=== PATIENT | male | born 1975 | race African-American/Black ===

== ENCOUNTER 2019-02-06 07:17 | Emergency (ER) | payer MEDICAID, OTHER ==
[~2019-02-06] VITALS: Ht 188 cm; Wt 93.0 kg
[~2019-02-06 07:17] MED LIST: AMLO10TA7 PO; ASPI-1152 PO; CARV6.25 PO; LISI40TA4 PO; SIMV20TA2 PO
[2019-02-06] MEDS ORDERED: KETOROLAC TROMETHAMINE INJ 60 MG/2 ML VIAL IM ONE ×2 (07:37→08:00)
[2019-02-06] MEDS ORDERED: SUMATRIPTAN SUCCINATE 6 MG/0.5 ML VIAL SQ ONE ×2 (07:37→08:00)
--- NOTE | 2019-02-06 08:03 | NUR ---
patient BIBGF c/o headache s/p taking sex pills on room air, breathing evenly and unlabored. Connected to the monitor and pulse ox. Kept comfortable, will continue to monitor accordingly.
[2019-02-06 08:04] VITALS: BP 150/99
--- NOTE | 2019-02-06 08:05 | NUR ---
Patient discharged to home in stable condition. Written and verbal after care instructions given. Patient verbalizes understanding of instruction.
== END 2019-02-06 08:04 | disposition home or self-care (01) ==
LOC: ER 07:20
DX: R51 Headache (principal); I10 Essential (primary) hypertension; E11.9 Type 2 diabetes mellitus without complications; Z98.890 Other specified postprocedural states; Z79.82 Long term (current) use of aspirin; Z79.899 Other long term (current) drug therapy
CPT/HCPCS: 96372 ×2; 99283; J1885; J3030

== ENCOUNTER 2019-06-25 14:59 | Emergency (ER) | payer BC, MEDICAID ==
[~2019-06-25] VITALS: Ht 188 cm; Wt 95.3 kg
--- NOTE | 2019-06-25 15:40 | NUR ---
difficulty breathing x 2 days. states stop taking his usual medication. 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
[2019-06-25 16:12] LABS: BASOPHILS # (AUTO) 0.2 /CMM (0.0-0.2); BASOPHILS % (AUTO) 1.8 % (0.0-2.0); HEMATOCRIT 41 % (39-51); HEMOGLOBIN 13.6 g/dL (13.5-17.5); LYMPHOCYTES # (AUTO) 1.2 /CMM (0.8-4.8); LYMPHOCYTES % (AUTO) 12.7 % (20.0-44.0); MEAN CORPUSCULAR HGB CONC 33 g/dl (31.0-36.0); MEAN CORPUSCULAR VOLUME 85 fL (80-96); MONOCYTES # (AUTO) 0.9 /CMM (0.1-1.30); MONOCYTES % (AUTO) 8.9 % (2.0-12.0); NEUTROPHILS # (AUTO) 7.2 /CMM (1.8-8.9); NEUTROPHILS % (AUTO) 74.6 % (43.0-81.0); PLATELET COUNT (AUTO) 248 /CMM (150-450); RED BLOOD CELL COUNT(AUTO) 4.88 MIL/uL (4.5-6.0); WHITE BLOOD COUNT (AUTO) 9.7 K/uL (4.3-11.0)
[2019-06-25 16:18] LABS: CALCIUM, SERUM 9.6 mg/dL (8.5-10.1); CREATININE 1.3 mg/dL (0.6-1.3); POTASSIUM 3.5 mmol/L (3.5-5.1)
--- NOTE | 2019-06-25 16:30 | NUR ---
patient ambulatory with a steady gait, no resp distress noted.
[2019-06-25 16:31] LABS: ALBUMIN 3.6 g/dL (3.4-5.0); BILIRUBIN,DIRECT 0.1 mg/dL (0.0-0.2); BILIRUBIN,TOTAL 0.3 mg/dL (0.2-1.0); TOTAL PROTEIN, SERUM 7.5 g/dL (6.4-8.2)
--- NOTE | 2019-06-25 17:01 | NUR ---
Patient discharged to home in stable condition. Written and verbal after care instructions given. Patient verbalizes understanding of instruction.
[2019-06-25 17:04] VITALS: BP 135/100
== END 2019-06-25 17:04 | disposition home or self-care (01) ==
LOC: ER 15:05
DX: I11.0 Hypertensive heart disease with heart failure (principal); I50.9 Heart failure, unspecified; E11.9 Type 2 diabetes mellitus without complications; I25.10 Atherosclerotic heart disease of native coronary artery without angina pectoris; E78.5 Hyperlipidemia, unspecified; Z98.890 Other specified postprocedural states; Z79.82 Long term (current) use of aspirin; Z79.899 Other long term (current) drug therapy
CPT/HCPCS: 36415; 71045-TC; 80048-TC; 80076-TC; 83880; 84484-TC; 85025-TC

== ENCOUNTER 2020-05-15 12:14 | Emergency (ER) | payer MEDICAID ==
[~2020-05-15] VITALS: Ht 188 cm; Wt 95.3 kg
[~2020-05-15 12:14] MED LIST changes: +AMLO-213 PO; -AMLO10TA7 PO; -ASPI-1152 PO; +ASPI-1420 PO
[2020-05-15 13:20] VITALS: BP 158/98
--- NOTE | 2020-05-15 13:29 | NUR ---
DR CASTRO AT BEDSIDE WALDO ABDUL.
[2020-05-15 14:35] LABS: BASOPHILS % (AUTO) 0.6 % (0.0-2.0); HEMATOCRIT 42 % (39-51); HEMOGLOBIN 13.6 g/dL (13.5-17.5); LYMPHOCYTES # (AUTO) 1.4 /CMM (0.8-4.8); MEAN CORPUSCULAR HGB CONC 32 g/dl (31.0-36.0); MEAN CORPUSCULAR VOLUME 83 fL (80-96); MONOCYTES # (AUTO) 0.6 /CMM (0.1-1.30); MONOCYTES % (AUTO) 7.6 % (2.0-12.0); NEUTROPHILS # (AUTO) 6.1 /CMM (1.8-8.9); NEUTROPHILS % (AUTO) 73.8 % (43.0-81.0); PLATELET COUNT (AUTO) 233 /CMM (150-450); RED BLOOD CELL COUNT(AUTO) 5.08 MIL/uL (4.5-6.0); WHITE BLOOD COUNT (AUTO) 8.3 K/uL (4.3-11.0)
--- NOTE | 2020-05-15 14:55 | NUR ---
dr rider into patient. Patient does not wish to proceed with medical care recommended by Dr. Rider. Patient given information related to possible complications, up to and including , which could occur as a result of leaving the hospital at this time. Patient verbalizes understanding of risks involved due to leaving against medical advice. Patient has signed AMA form.
[2020-05-15 14:57] LABS: CALCIUM, SERUM 9.4 mg/dL (8.5-10.1); CREATININE 1.3 mg/dL (0.6-1.3); POTASSIUM 3.8 mmol/L (3.5-5.1)
== END 2020-05-15 14:57 | disposition left against medical advice (07) ==
LOC: ER 12:21
DX: I11.0 Hypertensive heart disease with heart failure (principal); I50.9 Heart failure, unspecified; R06.02 Shortness of breath; E11.9 Type 2 diabetes mellitus without complications; Z98.890 Other specified postprocedural states; Z79.899 Other long term (current) drug therapy; Z79.82 Long term (current) use of aspirin
CPT/HCPCS: 36415; 80048-TC; 83880; 84484-TC; 85025-TC; 85730-TC

== ENCOUNTER 2021-03-28 01:12 | Emergency (ER) | payer MEDICAID ==
[~2021-03-28] VITALS: Ht 188 cm; Wt 93.0 kg
[~2021-03-28 01:12] MED LIST changes: +LISI40TA13 PO; -LISI40TA4 PO
--- NOTE | 2021-03-28 01:25 | NUR ---
JUAN BIBS C/O "TROUBLE BREATHING, HARD TO INHALE" FOR THE PAST 3 DAYS. PATIENT IS A/O X 4, RR EVEN AND UNLABORED, NO SOB NOTED. PATIENT CONNECTED TO PRACTICE OR STUDENT TEACHER AND POX.
[2021-03-28] MEDS ORDERED: NITROGLYCERIN 0.4 MG/TAB BOTTLE SL ONE (01:30)
[2021-03-28] MEDS ORDERED: NITROGLYCERIN 0.4 MG/TAB BOTTLE ONE (01:42)
[2021-03-28 01:56] LABS: BASOPHILS # (AUTO) 0.1 K/uL (0.0-0.2); BASOPHILS % (AUTO) 0.8 % (0.0-2.0); EOSINOPHILS % (AUTO) 1.3 % (0.0-6.0); HEMATOCRIT 41 % (39-51); HEMOGLOBIN 13.1 g/dL (13.5-17.5); LYMPHOCYTES # (AUTO) 1.2 K/uL (0.8-4.8); MEAN CORPUSCULAR HGB CONC 32 g/dl (31.0-36.0); MEAN CORPUSCULAR VOLUME 85 fL (80-96); MONOCYTES # (AUTO) 0.9 K/uL (0.1-1.30); MONOCYTES % (AUTO) 8.8 % (2.0-12.0); NEUTROPHILS # (AUTO) 7.8 K/uL (1.8-8.9); NEUTROPHILS % (AUTO) 77.1 % (43.0-81.0); PLATELET COUNT (AUTO) 271 K/uL (150-450); RED BLOOD CELL COUNT(AUTO) 4.79 MIL/uL (4.5-6.0); WHITE BLOOD COUNT (AUTO) 10.1 K/uL (4.3-11.0)
[2021-03-28 02:07] LABS: CALCIUM, SERUM 9.1 mg/dL (8.5-10.1); POTASSIUM 3.5 mmol/L (3.5-5.1)
--- NOTE | 2021-03-28 02:15 | NUR ---
RAD AT BEDSIDE
[2021-03-28] MEDS ORDERED: FUROSEMIDE 40 MG/4 ML VIAL ONE (02:40)
[2021-03-28] MEDS ORDERED: FURO-144 PO (02:43)
[2021-03-28 02:55] VITALS: BP 137/79
--- NOTE | 2021-03-28 02:57 | NUR ---
Patient discharged to home in stable condition. Written and verbal after care instructions given. Patient verbalizes understanding of instruction.
[2021-03-28] MEDS ORDERED: FUROSEMIDE 40 MG TABLET PO ONE (03:00)
== END 2021-03-28 02:58 | disposition home or self-care (01) ==
LOC: ER 01:14
DX: I11.0 Hypertensive heart disease with heart failure (principal); I50.9 Heart failure, unspecified; R06.02 Shortness of breath; E11.9 Type 2 diabetes mellitus without complications; Z98.890 Other specified postprocedural states; Z79.899 Other long term (current) drug therapy
CPT/HCPCS: 36415; 71045; 80048; 83880; 84484; 85025; 93005 ×2; 99285; J1940

== ENCOUNTER 2022-02-17 01:08 | Emergency (ER) | payer MEDICAID ==
[~2022-02-17] VITALS: Ht 188 cm; Wt 90.7 kg
[~2022-02-17 01:08] MED LIST changes: +FURO-144 PO
--- NOTE | 2022-02-17 01:38 | NUR ---
BIBS C/O SOB X2 DAYS. HAS A HX OF HF, AND HAS BEEN OFF HIS LASIX X5 DAYS BECAUSE "IT MAKES ME WAKE UP TO PEE TOO MUCH". PT BREATHING UNALBORED AT A NORMAL RATE AND RYTHMN, ORIENTED X4 98% RA. V/S WNL.
[2022-02-17 02:33] LABS: BASOPHILS # (AUTO) 0.1 K/uL (0.0-0.2); BASOPHILS % (AUTO) 0.5 % (0.0-2.0); HEMATOCRIT 40 % (39-51); HEMOGLOBIN 13.2 g/dL (13.5-17.5); LYMPHOCYTES # (AUTO) 1.3 K/uL (0.8-4.8); LYMPHOCYTES % (AUTO) 13.2 % (20.0-44.0); MEAN CORPUSCULAR HGB CONC 33 g/dl (31.0-36.0); MEAN CORPUSCULAR VOLUME 85 fL (80-96); MONOCYTES # (AUTO) 0.9 K/uL (0.1-1.30); MONOCYTES % (AUTO) 9.1 % (2.0-12.0); NEUTROPHILS # (AUTO) 7.6 K/uL (1.8-8.9); NEUTROPHILS % (AUTO) 76.2 % (43.0-81.0); PLATELET COUNT (AUTO) 218 K/uL (150-450); RED BLOOD CELL COUNT(AUTO) 4.75 MIL/uL (4.5-6.0)
[2022-02-17 02:56] LABS: CALCIUM, SERUM 9.8 mg/dL (8.5-10.1); CARBON DIOXIDE 27 mmol/L (21-32); CHLORIDE 105 mmol/L (98-107); CREATININE 1.5 mg/dL (0.6-1.3); GLUCOSE 112 mg/dL (74-106); POTASSIUM 3.3 mmol/L (3.5-5.1); SODIUM SERUM 140 mmol/L (136-145); UREA NITROGEN, BLOOD 25 mg/dL (7-18)
[2022-02-17] MEDS ORDERED: POTASSIUM CHLORIDE 20 MEQ TAB.PRT.SR PO ONE (04:00)
[2022-02-17] MEDS ORDERED: FUROSEMIDE 40 MG/4 ML VIAL IV ONE (04:00)
[2022-02-17] MEDS ORDERED: FUROSEMIDE 40 MG/4 ML VIAL ONE (04:16)
--- NOTE | 2022-02-17 04:53 | NUR ---
Patient discharged to home in stable condition. Written and verbal after care instructions given. Patient verbalizes understanding of instruction.
--- NOTE | 2022-02-17 04:53 | NUR ---
IV removed. Catheter intact and site benign. Pressure and 4x4 applied to site. No bleeding noted.
[2022-02-17 04:54] VITALS: BP 131/98
== END 2022-02-17 04:54 | disposition home or self-care (01) ==
LOC: ER 01:10
DX: R06.02 Shortness of breath (principal); I11.0 Hypertensive heart disease with heart failure; I50.9 Heart failure, unspecified; E11.9 Type 2 diabetes mellitus without complications; Z79.899 Other long term (current) drug therapy
CPT/HCPCS: 99285; 96374; 71045; 93005; 85025; 80048; 36415; 84484 ×2; 83880; J1940

== ENCOUNTER → 2022-03-01 | Emergency (ER) | payer MEDICAID ==
[~2022-03-01] VITALS: Ht 188 cm; Wt 90.7 kg
[~2022-03-01] MED LIST changes: +CEFTRIAXONE 1 G VIAL IM ONE; +CEFTRIAXONE 500 MG VIAL ONE; +DOXY100C2 PO; +IBUP-1955 PO; +LIDOCAINE 1% INJ 50 ML MDV IJ ONE
--- NOTE | 2022-03-01 13:40 | NUR ---
Modesta, C/O LEFT KNEE SWOLLEN INFLAMMED WAS AT AN 8 OUT OF 10 TOOK IBUPROFEN BEFORE ER VISIT IT HAS HELPED PAIN LEVEL NOW AT 3 OUT OF 10. STATED DID NOT FALL NOR HIT AREA
--- NOTE | 2022-03-01 13:50 | NUR ---
REFUSES IF THERE IS AN IV ORDER
--- NOTE | 2022-03-01 13:50 | NUR ---
WISHES TO BE DRAINED AND WRAPPED UP & ON HIS WAY, EDUCATED AND ADVISED TO FOLLOW MDs ORDERS AND DIRECTION HOWEVER WISHES TO BE UNCOOPERATIVE AT THIS TIME.
--- NOTE | 2022-03-01 13:50 | NUR ---
REFUSES X-RAY OF SITE
[2022-03-01 15:50] VITALS: BP 126/84
--- NOTE | 2022-03-02 07:49 | NUR ---
RECIEVED A CALL FROM THE LAB URINE WAS NEVER COLLECTED STI TESTING COULD NOT BE RESULTED
== END | disposition home or self-care (01) ==
LOC: ER 13:00
DX: M25.462 Effusion, left knee (principal); M25.562 Pain in left knee; Z11.3 Encounter for screening for infections with a predominantly sexual mode of transmission; I11.0 Hypertensive heart disease with heart failure; I50.9 Heart failure, unspecified; E11.9 Type 2 diabetes mellitus without complications; Z79.899 Other long term (current) drug therapy
CPT/HCPCS: 20610; 99283; 89060; 87070; 36415; 89051; 96372; J3490; J0696; A6403; A6407; 84155-TC

== ENCOUNTER 2022-04-20 11:30 | Emergency (ER) | payer MEDICAID ==
[~2022-04-20] VITALS: Ht 188 cm; Wt 89.4 kg
[~2022-04-20 11:30] MED LIST changes: -CEFTRIAXONE 1 G VIAL IM ONE; -CEFTRIAXONE 500 MG VIAL ONE; -LIDOCAINE 1% INJ 50 ML MDV IJ ONE
[2022-04-20 12:00] VITALS: BP 138/104
[2022-04-20] MEDS ORDERED: ACYC-108 PO (12:38)
[2022-04-20] MEDS ORDERED: HYDR-3980 PO (12:38)
== END 2022-04-20 12:44 | disposition home or self-care (01) ==
LOC: ER 11:30
DX: B02.9 Zoster without complications (principal); M54.50 Low back pain, unspecified; I11.0 Hypertensive heart disease with heart failure; Z79.82 Long term (current) use of aspirin; Z98.890 Other specified postprocedural states

== ENCOUNTER 2022-05-11 07:29 | Emergency (ER) | payer MEDICAID ==
[~2022-05-11] VITALS: Ht 188 cm; Wt 90.7 kg
[~2022-05-11 07:29] MED LIST changes: +ACYC-108 PO; +HYDR-3980 PO
--- NOTE | 2022-05-11 07:55 | NUR ---
C/O SOB X 3 DAYS. PT STATES "TIGHTNESS WHEN INHALING". HX OF CHF SPO2 AT 92% RA. NOTED CRACKLES ON BILATERAL LUNG BASES. PT AMBULATED TO BED, AA0X4, PLACED ON 2L NC O2, SATURATION IMPROVED TO 98%. AWAITING MD ORDERS.
[2022-05-11] MEDS ORDERED: ENALAPRILAT DIHYD. (2.5MG/2ML) 1.25 MG/ML VIAL IV ONE ×2 (08:00→08:21)
[2022-05-11] MEDS ORDERED: FUROSEMIDE 40 MG/4 ML VIAL IV ONE (08:00)
[2022-05-11] MEDS ORDERED: NITROGLYCERIN 0.4 MG/TAB BOTTLE SL ONE (08:00)
--- NOTE | 2022-05-11 08:00 | NUR ---
INSERTED ANG CATHETER G 18 ON RT AC BLOOD DROW AND SENT TO LAB
[2022-05-11] MEDS ORDERED: FUROSEMIDE 40 MG/4 ML VIAL ONE (08:05)
[2022-05-11] MEDS ORDERED: NITROGLYCERIN 0.4 MG/TAB BOTTLE ONE (08:06)
[2022-05-11] MEDS ORDERED: ALBUTEROL FS 2.5 MG/3 ML VIAL.NEB ONE (08:13)
[2022-05-11] MEDS ORDERED: IPRATROPIUM NEB FS 0.5 MG/2.5 ML AMPUL.NEB ONE (08:13)
[2022-05-11 08:22] LABS: BASOPHILS # (AUTO) 0.2 K/uL (0.0-0.2); BASOPHILS % (AUTO) 2.4 % (0.0-2.0); HEMATOCRIT 41 % (39-51); HEMOGLOBIN 13.2 g/dL (13.5-17.5); LYMPHOCYTES # (AUTO) 1.6 K/uL (0.8-4.8); LYMPHOCYTES % (AUTO) 16.2 % (20.0-44.0); MEAN CORPUSCULAR HGB CONC 32 g/dl (31.0-36.0); MEAN CORPUSCULAR VOLUME 86 fL (80-96); MONOCYTES # (AUTO) 0.8 K/uL (0.1-1.30); MONOCYTES % (AUTO) 8.2 % (2.0-12.0); NEUTROPHILS % (AUTO) 72.2 % (43.0-81.0); PLATELET COUNT (AUTO) 280 K/uL (150-450); RED BLOOD CELL COUNT(AUTO) 4.77 MIL/uL (4.5-6.0); WHITE BLOOD COUNT (AUTO) 9.7 K/uL (4.3-11.0)
[2022-05-11 08:44] LABS: ALANINE AMINOTRANSFERASE 28 U/L (12-78); ALBUMIN 3.4 g/dL (3.4-5.0); ALKALINE PHOSPHATASE 90 U/L (46-116); ASPARTATE AMINOTRANSFERASE 20 U/L (15-37); BILIRUBIN,DIRECT 0.3 mg/dL (0.0-0.2); CALCIUM, SERUM 9.3 mg/dL (8.5-10.1); CARBON DIOXIDE 26 mmol/L (21-32); CHLORIDE 101 mmol/L (98-107); CREATININE 1.6 mg/dL (0.6-1.3); GLUCOSE 124 mg/dL (74-106); POTASSIUM 3.2 mmol/L (3.5-5.1); SODIUM SERUM 138 mmol/L (136-145); TOTAL PROTEIN, SERUM 7.8 g/dL (6.4-8.2); UREA NITROGEN, BLOOD 26 mg/dL (7-18)
[2022-05-11] MEDS ORDERED: FURO-144 PO (09:20)
[2022-05-11 09:30] VITALS: BP 150/101
--- NOTE | 2022-05-11 09:30 | NUR ---
Patient does not wish to proceed with medical care recommended by Dr. Shelton. Patient given information related to possible complications, up to and including , which could occur as a result of leaving the hospital at this time. Patient verbalizes understanding of risks involved due to leaving against medical advice. Patient has signed AMA form.
== END 2022-05-11 09:31 | disposition left against medical advice (07) ==
LOC: ER 07:30
DX: I11.0 Hypertensive heart disease with heart failure (principal); I50.9 Heart failure, unspecified; E11.9 Type 2 diabetes mellitus without complications; Z79.899 Other long term (current) drug therapy
CPT/HCPCS: 99291; 96374; 96375; 93005; 71045; 85025; 80048; 80076; 83735; 36415; 84484; 83880; J1940; J3490

== ENCOUNTER 2022-05-12 19:17 | Emergency (ER) | payer MEDICAID ==
[~2022-05-12] VITALS: Ht 188 cm; Wt 90.7 kg
--- NOTE | 2022-05-12 20:15 | NUR ---
PT CAME IN FOR SOB. AOX4, O2 SAT AT 98% ON ROOM AIR, NO DISTRESS MOTED. AMBULATORY.
--- NOTE | 2022-05-12 21:02 | NUR ---
IV LINE INSERTED ON LAC 20G GOOD BLOOD RETURN, BLOOD DRAWN DONE SENT TO LAB.
--- NOTE | 2022-05-12 21:03 | NUR ---
INFORMATION TECHNOLOGY AUDITOR AT BEDSIDE
[2022-05-12 21:19] LABS: BASOPHILS # (AUTO) 0.1 K/uL (0.0-0.2); BASOPHILS % (AUTO) 1.1 % (0.0-2.0); EOSINOPHILS % (AUTO) 1.9 % (0.0-6.0); HEMATOCRIT 43 % (39-51); HEMOGLOBIN 13.9 g/dL (13.5-17.5); LYMPHOCYTES # (AUTO) 1.2 K/uL (0.8-4.8); MEAN CORPUSCULAR HGB CONC 33 g/dl (31.0-36.0); MEAN CORPUSCULAR VOLUME 85 fL (80-96); MONOCYTES # (AUTO) 0.8 K/uL (0.1-1.30); MONOCYTES % (AUTO) 10.5 % (2.0-12.0); NEUTROPHILS # (AUTO) 5.6 K/uL (1.8-8.9); NEUTROPHILS % (AUTO) 71.5 % (43.0-81.0); PLATELET COUNT (AUTO) 255 K/uL (150-450); RED BLOOD CELL COUNT(AUTO) 5.01 MIL/uL (4.5-6.0); WHITE BLOOD COUNT (AUTO) 7.8 K/uL (4.3-11.0)
[2022-05-12 21:33] LABS: CALCIUM, SERUM 9.4 mg/dL (8.5-10.1); CREATININE 1.9 mg/dL (0.6-1.3); POTASSIUM 3.4 mmol/L (3.5-5.1)
[2022-05-12] MEDS ORDERED: POTASSIUM CHLORIDE 20 MEQ TAB.PRT.SR PO ONE ×2 (22:23→22:30)
[2022-05-12] MEDS ORDERED: FUROSEMIDE 40 MG/4 ML VIAL IV ONE (22:30)
--- NOTE | 2022-05-12 22:52 | NUR ---
PT DC TO HOME. DISCHARGE INSTRUCTIONS GIVEN, VERBALIZES UNDERSTANDING. IV LINE REMOVED. CATHETER INTACT.
[2022-05-12 22:55] VITALS: BP 125/52
== END 2022-05-12 22:57 | disposition home or self-care (01) ==
LOC: ER 19:26
DX: I11.0 Hypertensive heart disease with heart failure (principal); I50.9 Heart failure, unspecified; R06.02 Shortness of breath; R79.89 Other specified abnormal findings of blood chemistry; E11.9 Type 2 diabetes mellitus without complications; Z79.899 Other long term (current) drug therapy
CPT/HCPCS: 99291; 96374; 93005; 71045; 85025; 80048; 36415; 84484; 83880; J1940

== ENCOUNTER 2022-08-02 17:31 | Emergency (ER) | payer MEDICAID ==
[~2022-08-02] VITALS: Ht 182.9 cm; Wt 91.2 kg
[2022-08-02 18:27] VITALS: BP 129/85
[2022-08-02] MEDS ORDERED: IBUPROFEN 600 MG TABLET PO ONE (20:00)
[2022-08-02] MEDS ORDERED: IBUPROFEN 600 MG TABLET ONE (20:04)
[2022-08-02] MEDS ORDERED: IBUP-1953 PO (21:56)
== END 2022-08-02 22:17 | disposition home or self-care (01) ==
LOC: ER 17:50
DX: M25.561 Pain in right knee (principal); I10 Essential (primary) hypertension; E11.9 Type 2 diabetes mellitus without complications; Z98.890 Other specified postprocedural states; Z79.899 Other long term (current) drug therapy; Z79.82 Long term (current) use of aspirin
CPT/HCPCS: 73564-TC

== ENCOUNTER 2023-03-29 13:00 | Emergency (ER) | payer MEDICAID ==
[~2023-03-29] VITALS: Ht 188 cm; Wt 94.3 kg
[~2023-03-29 13:00] MED LIST changes: +IBUP-1953 PO
[2023-03-29] MEDS ORDERED: IBUP-1957 PO (14:33)
[2023-03-29 14:44] VITALS: BP 135/78; TEMP 98.1; O2SAT 99
== END 2023-03-29 14:45 | disposition home or self-care (01) ==
LOC: ER 13:04
DX: S20.219A Contusion of unspecified front wall of thorax, initial encounter (principal); I11.0 Hypertensive heart disease with heart failure; I50.9 Heart failure, unspecified; E11.9 Type 2 diabetes mellitus without complications; Z79.899 Other long term (current) drug therapy; V89.2XXA Person injured in unspecified motor-vehicle accident, traffic, initial encounter; Y93.89 Activity, other specified; Y92.89 Other specified places as the place of occurrence of the external cause; Y99.8 Other external cause status
CPT/HCPCS: 71045-TC

== ENCOUNTER 2023-07-10 13:58 | Emergency (ER) | payer MEDICAID ==
[~2023-07-10 13:58] MED LIST changes: +IBUP-1957 PO
[2023-07-10] MEDS ORDERED: AMOX500C2 PO (15:28)
== END 2023-07-10 14:26 | disposition home or self-care (01) ==
LOC: ER 14:02
DX: K08.89 Other specified disorders of teeth and supporting structures (principal); Z53.21 Procedure and treatment not carried out due to patient leaving prior to being seen by health care provider

== ENCOUNTER 2023-07-10 14:59 | Emergency (ER) | payer MEDICAID ==
[~2023-07-10] VITALS: Ht 188 cm; Wt 92.1 kg
[2023-07-10 15:07] VITALS: BP 124/92; TEMP 98.5; O2SAT 98
[2023-07-10] MEDS ORDERED: AMOX500C2 PO (15:28)
[2023-07-10] MEDS: IBUPROFEN 400 MG TABLET PO ONE (15:30)
[2023-07-10] MEDS ORDERED: AMOXICILLIN TRIHYDRATE 250 MG CAPSULE ONE (15:30)
[2023-07-10] MEDS ORDERED: IBUPROFEN 400 MG TABLET ONE (15:30)
[2023-07-10] MEDS: AMOXICILLIN TRIHYDRATE 500 MG CAPSULE PO ONE (15:30)
== END 2023-07-10 15:35 | disposition home or self-care (01) ==
LOC: ER 15:12
DX: K08.89 Other specified disorders of teeth and supporting structures (principal); I11.0 Hypertensive heart disease with heart failure; I50.9 Heart failure, unspecified; E11.9 Type 2 diabetes mellitus without complications; Z79.82 Long term (current) use of aspirin; Z98.890 Other specified postprocedural states; Z79.899 Other long term (current) drug therapy

== ENCOUNTER 2023-07-30 08:13 | Emergency (ER) | payer MEDICAID ==
[~2023-07-30] VITALS: Ht 188 cm; Wt 90.7 kg
[~2023-07-30 08:13] MED LIST changes: +AMOX500C2 PO
[2023-07-30 08:50] LABS: BASOPHILS % (AUTO) 0.6 % (0.0-2.0); EOSINOPHILS # (AUTO) 0.1 K/uL (0.0-0.7); EOSINOPHILS % (AUTO) 1.2 % (0.0-6.0); HEMATOCRIT 39 % (39-51); HEMOGLOBIN 12.8 g/dL (13.5-17.5); LYMPHOCYTES # (AUTO) 0.7 K/uL (0.8-4.8); LYMPHOCYTES % (AUTO) 9.4 % (20.0-44.0); MEAN CORPUSCULAR HEMOGLOBIN 28 PG (26.0-33.0); MEAN CORPUSCULAR HGB CONC 33 g/dl (31.0-36.0); MEAN CORPUSCULAR VOLUME 85 fL (80-96); MONOCYTES # (AUTO) 0.6 K/uL (0.1-1.30); MONOCYTES % (AUTO) 7.8 % (2.0-12.0); NEUTROPHILS # (AUTO) 6.3 K/uL (1.8-8.9); PLATELET COUNT (AUTO) 259 K/uL (150-450); RED BLOOD CELL COUNT(AUTO) 4.57 MIL/uL (4.5-6.0); RED CELL DISTRIBUTION WIDTH 16.4 % (11.5-15.0); WHITE BLOOD COUNT (AUTO) 7.8 K/uL (4.3-11.0)
[2023-07-30 09:07] LABS: CALCIUM, SERUM 9.5 mg/dL (8.5-10.1); CARBON DIOXIDE 27 mmol/L (21-32); CHLORIDE 101 mmol/L (98-107); CREATININE 1.8 mg/dL (0.6-1.3); GLUCOSE 207 mg/dL (74-106); SODIUM SERUM 139 mmol/L (136-145); UREA NITROGEN, BLOOD 28 mg/dL (7-18)
[2023-07-30 09:12] LABS: INR 1.32 (0.91-1.10); PARTIAL THROMBOPLASTIN TIME 35.8 SEC (24.3-34.3); PROTHROMBIN TIME 13.7 SECS (9.2-11.1)
[2023-07-30 09:16] LABS: POTASSIUM 2.8 mmol/L (3.5-5.1)
[2023-07-30 09:19] LABS: ALANINE AMINOTRANSFERASE 37 U/L (12-78); ALBUMIN 3.3 g/dL (3.4-5.0); ALKALINE PHOSPHATASE 95 U/L (46-116); ASPARTATE AMINOTRANSFERASE 22 U/L (15-37); BILIRUBIN,DIRECT 0.2 mg/dL (0.0-0.2); BILIRUBIN,TOTAL 0.6 mg/dL (0.2-1.0); NT-PRO BNP 3061 pg/mL (0-125); TOTAL PROTEIN, SERUM 7.8 g/dL (6.4-8.2)
[2023-07-30] MEDS ORDERED: POTASSIUM CHLORIDE 20 MEQ TAB.PRT.SR PO ONE (10:01)
[2023-07-30] MEDS ORDERED: POTA20TA83 PO (10:02)
[2023-07-30] MEDS: POTASSIUM CHLORIDE 20 MEQ TAB.PRT.SR PO ONE (10:05)
[2023-07-30 10:06] VITALS: BP 135/76; TEMP 98.5; O2SAT 99
== END 2023-07-30 10:06 | disposition left against medical advice (07) ==
LOC: ER 08:13
DX: E87.6 Hypokalemia (principal); I11.0 Hypertensive heart disease with heart failure; I50.9 Heart failure, unspecified; E11.9 Type 2 diabetes mellitus without complications; Z79.899 Other long term (current) drug therapy
CPT/HCPCS: 36415; 71045-TC; 80048-TC; 80076-TC; 83880; 84484-TC; 85025-TC; 85730-TC